=== PATIENT | female | born 1950 | race Caucasian/White ===

== ENCOUNTER 2018-04-05 11:38 | Emergency (ER) | payer MEDICARE, OTHER ==
[~2018-04-05] VITALS: Ht 162.6 cm; Wt 54.4 kg
[~2018-04-05 11:38] MED LIST: ALBU90OI; ALEN70 PO; ALPR.5 PO; AMLO5 PO; FLUNOI; HYDACE5 PO; ISOMON30; METCAR500 PO; PROACE100 PO; RXPROACE PO; ZAFI20
[2018-04-05 12:17] LABS: BASOPHILS ABSOLUTE AUTO 0.09 K/mm3 (0.00-0.23); BASOPHILS PERCENT AUTO 2 % (0-2); EOSINOPHILS ABSOLUTE AUTO 0.35 K/mm3 (0.00-0.68); EOSINOPHILS PERCENT AUTO 8 % (0-6); Hematocrit 43.5 % (33.0-51.0); Hemoglobin 14.4 g/dL (11.5-16.0); IMMATURE GRAN ABSOLUTE AUTO 0.01 K/mm3 (0.00-0.10); IMMATURE GRAN PERCENT AUTO 0 % (0-1); LYMPHOCYTES ABSOLUTE AUTO 1.18 K/mm3 (0.84-5.20); LYMPHOCYTES PERCENT AUTO 27 % (21-46); MONOCYTES ABSOLUTE AUTO 0.54 K/mm3 (0.16-1.47); MONOCYTES PERCENT AUTO 12 % (4-13); Mean Corpuscular HGB 33.3 pg (26.0-34.0); Mean Corpuscular HGB Conc 33.1 g/dL (31.5-36.5); Mean Corpuscular Volume 101 fL (80-100); NEUTROPHILS ABSOLUTE AUTO 2.19 K/mm3 (1.96-9.15); NEUTROPHILS PERCENT AUTO 50 % (41-73); Platelet Count 352 K/mm3 (150-400); RDW Coefficient Variation 11.8 % (11.7-14.2); RDW Standard Deviation 44.2 fL (35.1-46.3); Red Blood Cell Count 4.33 M/mm3 (3.80-5.20); White Blood Cell Count 4.36 K/mm3 (4.00-11.30)
[2018-04-05 12:36] LABS: Alanine Aminotransfer (ALT/SGP 24 U/L (12-78); Albumin, Blood 3.7 g/dL (3.4-5.0); Albumin/Globulin Ratio 0.9 (0.8-1.8); Alk Phos 49 U/L (50-136); Anion Gap 5 mmol/L (6-16); Aspartate Aminotrans (AST/SGOT 22 U/L (12-37); Bilirubin, Total 0.5 mg/dL (0.1-1.0); Blood Urea Nitrogen 12 mg/dL (8-24); Bun/Creatinine Ratio 13.4 (12.0-20.0); CO2, Blood 27 mmol/L (21-32); Calcium, Blood 8.9 mg/dL (8.5-10.1); Chloride, Blood 106 mmol/L (98-108); Glomerular Filtration Rate >60 (60-); Glucose, Blood 87 mg/dL (70-99); Sodium, Blood 138 mmol/L (136-145); Total Protein, Blood 7.7 g/dL (6.4-8.2); Troponin I <0.015 ng/mL (0.000-0.040)
== END 2018-04-05 14:15 | disposition home or self-care (01) ==
LOC: ER 11:38
PROVIDERS: Physician Assistant
DX: I20.1 Angina pectoris with documented spasm (principal); M54.2 Cervicalgia; I10 Essential (primary) hypertension; Z87.891 Personal history of nicotine dependence
CPT/HCPCS: 36415; 71046; 80053; 84484; 85025; 93005; 93010; 99285-25

== ENCOUNTER → 2023-12-19 | Outpatient (CLI) | payer MEDICARE, OTHER ==
[2023-12-27 06:35] LABS: OVA AND PARASITE,FECAL INTERP Negative (Negative)
== END | disposition home or self-care (01) ==
LOC: LAB SHORT 13:15 → LAB 13:15 → LAB FUT 12-12 10:35 → EDSTATUS 12-12 10:35
PROVIDERS: Internal Medicine Gastroenterology
DX: R19.7 Diarrhea, unspecified (principal)
CPT/HCPCS: 87177; 87209

== ENCOUNTER → 2024-07-13 | Outpatient (CLI) | payer MEDICARE, OTHER ==
[2024-07-13 11:17] LABS: BASOPHILS ABSOLUTE AUTO 0.06 K/mm3 (0.00-0.23); BASOPHILS PERCENT AUTO 1 % (0-2); EOSINOPHILS ABSOLUTE AUTO 0.11 K/mm3 (0.00-0.68); EOSINOPHILS PERCENT AUTO 2 % (0-6); Hemoglobin 12.8 g/dL (11.5-16.0); IMMATURE GRAN ABSOLUTE AUTO 0.04 K/mm3 (0.00-0.10); IMMATURE GRAN PERCENT AUTO 1 % (0-1); LYMPHOCYTES PERCENT AUTO 16 % (21-46); MONOCYTES ABSOLUTE AUTO 1.16 K/mm3 (0.16-1.47); MONOCYTES PERCENT AUTO 20 % (4-13); Mean Corpuscular HGB 33.2 pg (26.0-34.0); Mean Corpuscular HGB Conc 33.7 g/dL (31.5-36.5); Mean Corpuscular Volume 98 fL (80-100); Mean Platelet Volume 8.5 fL (9.1-12.4); NEUTROPHILS ABSOLUTE AUTO 3.45 K/mm3 (1.96-9.15); NEUTROPHILS PERCENT AUTO 60 % (41-73); Platelet Count 393 K/mm3 (150-400); RDW Coefficient Variation 12.5 % (11.7-14.2); RDW Standard Deviation 44.9 fL (35.1-46.3); Red Blood Cell Count 3.86 M/mm3 (3.80-5.20); White Blood Cell Count 5.72 K/mm3 (4.00-11.30)
[2024-07-13 11:27] LABS: Albumin, Blood 3.4 g/dL (3.4-5.0); Albumin/Globulin Ratio 0.9 (0.8-1.8); Bilirubin, Total 0.2 mg/dL (0.1-1.0); Bun/Creatinine Ratio 11.1 (12.0-20.0); Calcium, Blood 8.8 mg/dL (8.5-10.1); Creatinine, Blood 1.08 mg/dL (0.40-1.00); Potassium, Blood 4.2 mmol/L (3.5-5.5); Total Protein, Blood 7.4 g/dL (6.4-8.2)
== END ==
LOC: LAB SHORT 11:12 → LAB 11:12
PROVIDERS: Physician Assistant
DX: R41.82 Altered mental status, unspecified (principal)
CPT/HCPCS: 80053; 85025

== ENCOUNTER 2025-03-31 11:35 | Inpatient (IN) | payer MEDICARE, OTHER ==
[~2025-03-31] VITALS: Ht 162.6 cm; Wt 54.6 kg
[2025-03-31] MEDS ORDERED: NS 1,000 ML IV SCH ×2 (11:45→15:15)
[2025-03-31] MEDS ORDERED: Ondansetron HCl 2 MG / ML 2ML Vial IV PRN (12:10)
[2025-03-31 12:18] LABS: Hematocrit 36.7 % (33.0-51.0); Hemoglobin 12.9 g/dL (11.5-16.0); Mean Corpuscular HGB Conc 35.1 g/dL (31.5-36.5); Mean Corpuscular Volume 96 fL (80-100); NRBC ABSOLUTE 0.00 K/mm3 (0.00-0.02); NRBC Auto 0.0 /100 WBC (0.0-0.2); Platelet Count 273 K/mm3 (150-400); RDW Coefficient Variation 12.4 % (11.7-14.2); RDW Standard Deviation 43.7 fL (35.1-46.3)
[2025-03-31 12:46] LABS: Alanine Aminotransfer (ALT/SGP 16.0 U/L (12-78); Albumin, Blood 2.7 g/dL (3.4-5.0); Albumin/Globulin Ratio 0.7 (0.8-1.8); Anion Gap 13.0 mmol/L (3-11); Aspartate Aminotrans (AST/SGOT 14.0 U/L (12-37); Bilirubin, Direct 0.1 mg/dL (0.0-0.3); Bilirubin, Indirect 0.4 mg/dL (0.1-0.7); Bilirubin, Total 0.5 mg/dL (0.1-1.0); Blood Urea Nitrogen 45.0 mg/dL (8-24); CO2, Blood 21.0 mmol/L (21-32); Calcium, Blood 7.3 mg/dL (8.5-10.1); Chloride, Blood 96.0 mmol/L (98-108); Creatinine, Blood 1.95 mg/dL (0.40-1.00); Globulin, Blood 3.7 g/dL (2.2-4.0); Glucose, Blood 143.0 mg/dL (70-99); Magnesium, Blood 2.5 mg/dL (1.6-2.4); Phosphorus, Blood 2.8 mg/dL (2.5-4.9); Potassium, Blood 3.7 mmol/L (3.5-5.5); Sodium, Blood 126.0 mmol/L (136-145); Total Protein, Blood 6.4 g/dL (6.4-8.2)
[2025-03-31 13:31] LABS: BAND PERCENT MAN 28 % (0-8); BASOPHILS ABSOLUTE MAN 0.00 K/mm3 (0.00-0.23); BASOPHILS PERCENT MAN 0 % (0-2); EOSINOPHILS ABSOLUTE MAN 0.00 K/mm3 (0.00-0.68); EOSINOPHILS PERCENT MAN 0 % (0-6); LYMPHOCYTES ABSOLUTE MAN 0.20 K/mm3 (0.84-5.20); LYMPHOCYTES PERCENT MAN 5 % (21-46); MONOCYTES ABSOLUTE MAN 1.01 K/mm3 (0.16-1.47); MONOCYTES PERCENT MAN 25 % (4-13); NEUTROPHILS ABSOLUTE MAN 2.83 K/mm3 (1.96-9.15); SEG NEUTROPHILS PERCENT MAN 42 % (41-73)
[2025-03-31] MEDS ORDERED: FLU VACC TS2025(65UP)/MF59C/PF 45 MCG/0.5 ML SYRINGE IM SCH (15:10)
[2025-03-31] MEDS ORDERED: MetroNIDAZOLE 500MG/NS 100 ml 100 ML IV SCH (16:00)
[2025-03-31] MEDS ORDERED: CefTRIAXone Sodium 1,000 MG in NS 100 ML IV SCH (16:00)
[2025-03-31] MEDS ORDERED: Nystatin 100,000 Unit/ML Susp 5 ML UDC MT SCH (17:00)
[2025-03-31 17:01] VITALS: BP 100/53
[2025-03-31] MEDS ORDERED: Robaxin750 MG PO (17:42)
[2025-03-31] MEDS ORDERED: PROLIA60 MG/1 ML (17:43)
[2025-03-31] MEDS ORDERED: EXEM25 PO (17:45)
[2025-03-31] MEDS ORDERED: DULO30 PO (17:47)
[2025-03-31] MEDS ORDERED: Oxybutynin Chlor5 M1 PO (17:54)
[2025-03-31 18:28] LABS: Campylobacter Sp Not Detected (NOT DETECT); E. Coli O157 Not Detected (NOT DETECT); Enteroaggregative E. coli-EAEC Not Detected (NOT DETECT); Enteropathogenic E. coli-EPEC Not Detected (NOT DETECT); Enterotoxigenic E. coli-ETEC Not Detected (NOT DETECT); Salmonella Sp Not Detected (NOT DETECT); Shiga Toxin-prod E. coli-STEC Not Detected (NOT DETECT); Shigella/Enteroin E. coli-EIEC Not Detected (NOT DETECT); Vibrio Sp Not Detected (NOT DETECT)
[2025-03-31] MEDS ORDERED: FentaNYL Citrate 50 MCG/ML 2 ML Injection IV PRN (18:35)
--- NOTE | 2025-03-31 19:18 | NUR ---
PT ADMIT FROM ER. STOOL SAMPLE PENDING. ALERT AND ORIENTED X4, CALLS APPROPRIATELY. SCD IN PLACE, PT EDUCATED TO CALL FOR SBA TO BATHROOM, PT VERBALIZES UNDERSTANDING. PT REPORTS 8-[address] SHANKS NOTIFIED. PER MD, ORDER FENTANYL 25 MG IV Q3P AND OXYCODONE 5 MG PO Q4P. PT STATES ALLERGY TO CODEINE IS UPSET STOMACH AND NO SEVERE REACTION. MEDICATED PER EMAR. IV FLUIDS STARTED ON ADMISSION
[2025-03-31 19:48] VITALS: BP 103/52
[2025-03-31] MEDS ORDERED: Lactobacil 2-S.Thermo-Bifido 1 1 Cap PO SCH (21:00)
[2025-04-01 01:02] VITALS: BP 112/58
[2025-04-01 04:18] VITALS: BP 92/52
[2025-04-01 05:49] LABS: Hematocrit 31.3 % (33.0-51.0); Hemoglobin 11.0 g/dL (11.5-16.0); Mean Corpuscular HGB Conc 35.1 g/dL (31.5-36.5); Mean Corpuscular Volume 98 fL (80-100); NRBC ABSOLUTE 0.00 K/mm3 (0.00-0.02); NRBC Auto 0.0 /100 WBC (0.0-0.2); Platelet Count 216 K/mm3 (150-400); RDW Coefficient Variation 12.5 % (11.7-14.2); RDW Standard Deviation 44.9 fL (35.1-46.3)
[2025-04-01 06:13] LABS: Alanine Aminotransfer (ALT/SGP 15.0 U/L (12-78); Albumin, Blood 2.0 g/dL (3.4-5.0); Albumin/Globulin Ratio 0.6 (0.8-1.8); Anion Gap 12.0 mmol/L (3-11); Aspartate Aminotrans (AST/SGOT 21.0 U/L (12-37); Bilirubin, Total 0.4 mg/dL (0.1-1.0); Blood Urea Nitrogen 42.0 mg/dL (8-24); CO2, Blood 19.0 mmol/L (21-32); Calcium, Blood 6.4 mg/dL (8.5-10.1); Chloride, Blood 100.0 mmol/L (98-108); Creatinine, Blood 1.64 mg/dL (0.40-1.00); Globulin, Blood 3.5 g/dL (2.2-4.0); Glucose, Blood 147.0 mg/dL (70-99); Potassium, Blood 3.0 mmol/L (3.5-5.5); Sodium, Blood 128.0 mmol/L (136-145); Total Protein, Blood 5.5 g/dL (6.4-8.2)
[2025-04-01 06:22] LABS: BAND PERCENT MAN 23 % (0-8); BASOPHILS ABSOLUTE MAN 0.00 K/mm3 (0.00-0.23); BASOPHILS PERCENT MAN 0 % (0-2); EOSINOPHILS ABSOLUTE MAN 0.00 K/mm3 (0.00-0.68); EOSINOPHILS PERCENT MAN 0 % (0-6); LYMPHOCYTES ABSOLUTE MAN 0.07 K/mm3 (0.84-5.20); LYMPHOCYTES PERCENT MAN 1 % (21-46); METAMYELOCYTE ABSOLUTE MAN 0.14 K/mm3 (0.00-0.00); METAMYELOCYTE PERCENT MAN 2 % (0-0); MONOCYTES ABSOLUTE MAN 1.17 K/mm3 (0.16-1.47); MONOCYTES PERCENT MAN 16 % (4-13); NEUTROPHILS ABSOLUTE MAN 5.94 K/mm3 (1.96-9.15); SEG NEUTROPHILS PERCENT MAN 58 % (41-73)
[2025-04-01 07:46] VITALS: BP 105/70
[2025-04-01] MEDS ORDERED: Enoxaparin 30 MG/0.3 ML SYR SC SCH (09:00)
[2025-04-01] MEDS ORDERED: Multivitamins 1 Tab PO SCH (09:25)
[2025-04-01 11:48] VITALS: BP 111/60
[2025-04-01 15:26] VITALS: BP 114/61
--- NOTE | 2025-04-01 20:18 | NUR ---
SHIFT SUMMARY: NO NEW OR ACUTE CHANGES THIS SHIFT. PATIENT HAS BEEN A+O X4 AND HAS ABLE TO MAKE NEEDS KNOWN DURING THIS DAY. PATIENT SWITCHED TO PO ABX. TOLERATING CLEARS WELL WITH NO NAUSEA OR VOMITTING. WILL REPORT TO ONCOMING RN.
[2025-04-01 20:34] VITALS: BP 116/61
[2025-04-01] MEDS ORDERED: Banana Flakes/Tos 1 EA Powder Pack PO SCH (21:00)
[2025-04-02 00:45] VITALS: BP 112/59
[2025-04-02 05:00] VITALS: BP 120/69
[2025-04-02 07:00] LABS: Hematocrit 32.4 % (33.0-51.0); Hemoglobin 11.4 g/dL (11.5-16.0); Mean Corpuscular HGB Conc 35.2 g/dL (31.5-36.5); Mean Corpuscular Volume 97 fL (80-100); NRBC ABSOLUTE 0.00 K/mm3 (0.00-0.02); NRBC Auto 0.0 /100 WBC (0.0-0.2); Platelet Count 222 K/mm3 (150-400); RDW Coefficient Variation 12.9 % (11.7-14.2); RDW Standard Deviation 46.0 fL (35.1-46.3)
[2025-04-02 07:12] LABS: Alanine Aminotransfer (ALT/SGP 15.0 U/L (12-78); Albumin, Blood 2.0 g/dL (3.4-5.0); Albumin/Globulin Ratio 0.6 (0.8-1.8); Anion Gap 7.0 mmol/L (3-11); Aspartate Aminotrans (AST/SGOT 14.0 U/L (12-37); Bilirubin, Total 0.3 mg/dL (0.1-1.0); Blood Urea Nitrogen 21.0 mg/dL (8-24); CO2, Blood 22.0 mmol/L (21-32); Calcium, Blood 7.0 mg/dL (8.5-10.1); Chloride, Blood 106.0 mmol/L (98-108); Creatinine, Blood 0.83 mg/dL (0.40-1.00); Globulin, Blood 3.6 g/dL (2.2-4.0); Glucose, Blood 156.0 mg/dL (70-99); Potassium, Blood 3.4 mmol/L (3.5-5.5); Sodium, Blood 132.0 mmol/L (136-145); Total Protein, Blood 5.6 g/dL (6.4-8.2)
[2025-04-02 07:37] LABS: BAND PERCENT MAN 4 % (0-8); BASOPHILS ABSOLUTE MAN 0.00 K/mm3 (0.00-0.23); BASOPHILS PERCENT MAN 0 % (0-2); EOSINOPHILS ABSOLUTE MAN 0.00 K/mm3 (0.00-0.68); EOSINOPHILS PERCENT MAN 0 % (0-6); LYMPHOCYTES ABSOLUTE MAN 0.20 K/mm3 (0.84-5.20); LYMPHOCYTES PERCENT MAN 2 % (21-46); MONOCYTES ABSOLUTE MAN 1.67 K/mm3 (0.16-1.47); MONOCYTES PERCENT MAN 16 % (4-13); NEUTROPHILS ABSOLUTE MAN 8.60 K/mm3 (1.96-9.15); SEG NEUTROPHILS PERCENT MAN 78 % (41-73)
[2025-04-02 07:47] VITALS: BP 117/71
--- NOTE | 2025-04-02 08:08 | NUR ---
SHIFT SUMMARY PATIENT SLEPT INTERMITTENTLY DUE NAUSEA, VOMITTING, OR DIAHRRHEA. GAVE PATIENTS MED PER EMAR FOR PAIN. WAS ABLE TO GET UP INDEPENDENTLY AND MOVE WITH LITTLE CONCERN ALTHOUGH DID STATE DIZZINESS. ABLE TO MAKE NEEDS KNOWN, CALL LIGHT WITHIN REACH, NO DISTRESS NOTED. BED AT LOWEST LEVEL.
[2025-04-02] MEDS ORDERED: Enoxaparin 40 MG/0.4 ML SYR SC SCH (09:00)
[2025-04-02] MEDS ORDERED: Prochlorperazine Edisylate 10 mg Vial IV PRN (13:55)
[2025-04-02 16:13] VITALS: BP 124/69
--- NOTE | 2025-04-02 17:52 | NUR ---
END OF SHIFT PT ALERT, ORIENTED, ABLE TO MAKE NEED KNOWN. PT WORRIED ABOUT HER SON AND HAS ANXIETY RELATED TO THIS. SHE COMPLAINS OF NAUSEA THROUGOUT THE DAY. PRN GIVEN. PT SEEMS CONFUSED. SHE WILL ASK FOR NAUSEA MEDS, SHE WILL GET THEM, THEN WHEN I ASKE HER IF SHE HAS BEEN NAUSEATED SHE DENIES IT, WHEN ASKED IF SHE HAS BEEN VOMITING OR DRY HEAVES, SHE SAYS NO. BUT THEN QUICKLY ASKS ME WHAT I PUT IN HER IV, THEN TELLS ME SHE DIDNT KNOW SHE NEEDED NAUSEA MEDS, THEN WILL TELL ME THAT SHE HAS OCCASIONALLY BEEN DRY HEAVING. I WILL THEN GO FOLLOW UP WITH HER AN HOUR OR SO LATER, AND SHE WILL RANDOMLY ASK ME WHEN THE MEDICATION WILL START WORKING. I ASK HER IF SHE IS SICK TO HER STOMACH, SHE SAYS NO, THEN I TELL HER THAT MEANS THE MEDICATION IS WORKING. SHE HAS DONE THINGS LIKE THIS THROUGOUT THE ENTIRE DAY. SHE APPEARS TO BE ALERT AND ORIENTED, BUT SOMETHING ELSE BEYOND FORGETFUL APPEARS TO BE GOING ON. SHE CLEARLY IS FORGETFUL, BECAUSE SHE WILL WATCH ME GIVE HER MEDS, TELL HER WHAT THEY ARE AND WHAT THEY ARE FOR, AND THEN SHE ASKS ME WHAT IT WAS SHE JUST TOOK. AT THE END OF SHIFT, SHE HAD A SHOWER, WHICH SHE LOST IV ACCESS DUE TO INFILTRATION. NEW IV PLACED. PT TO FINISH HER IV POTASSIUM REPLACEMENT. PLAN IS TO ERIK DISCHARGE HOME TOMORROW. SHE CONTINUES WITH FREQUENT LOOSE STOOLS. COMMODE EMPTIED 3 TIMES, UNSURE OF HOW MANY TIMES SHE GOT UP TO USE IT, SHE IS NOT ABLE TO RECALL AN APPROXIMATE AMOUNT.
[2025-04-02 19:47] VITALS: BP 117/67
[2025-04-03 01:06] VITALS: BP 111/78
[2025-04-03 05:51] LABS: Hematocrit 33.9 % (33.0-51.0); Hemoglobin 11.9 g/dL (11.5-16.0); Mean Corpuscular HGB Conc 35.1 g/dL (31.5-36.5); Mean Corpuscular Volume 97 fL (80-100); NRBC ABSOLUTE 0.00 K/mm3 (0.00-0.02); NRBC Auto 0.0 /100 WBC (0.0-0.2); Platelet Count 242 K/mm3 (150-400); RDW Coefficient Variation 13.1 % (11.7-14.2); RDW Standard Deviation 46.5 fL (35.1-46.3)
[2025-04-03 06:12] LABS: Anion Gap 8.0 mmol/L (3-11); Blood Urea Nitrogen 12.0 mg/dL (8-24); CO2, Blood 22.0 mmol/L (21-32); Calcium, Blood 6.9 mg/dL (8.5-10.1); Chloride, Blood 108.0 mmol/L (98-108); Creatinine, Blood 0.71 mg/dL (0.40-1.00); Glucose, Blood 116.0 mg/dL (70-99); Potassium, Blood 4.2 mmol/L (3.5-5.5); Sodium, Blood 134.0 mmol/L (136-145)
[2025-04-03 06:14] VITALS: BP 146/77
[2025-04-03 06:19] LABS: BAND PERCENT MAN 8 % (0-8); BASOPHILS ABSOLUTE MAN 0.00 K/mm3 (0.00-0.23); BASOPHILS PERCENT MAN 0 % (0-2); EOSINOPHILS ABSOLUTE MAN 0.00 K/mm3 (0.00-0.68); EOSINOPHILS PERCENT MAN 0 % (0-6); LYMPHOCYTES ABSOLUTE MAN 0.26 K/mm3 (0.84-5.20); LYMPHOCYTES PERCENT MAN 3 % (21-46); MONOCYTES ABSOLUTE MAN 0.88 K/mm3 (0.16-1.47); MONOCYTES PERCENT MAN 10 % (4-13); NEUTROPHILS ABSOLUTE MAN 7.68 K/mm3 (1.96-9.15); SEG NEUTROPHILS PERCENT MAN 79 % (41-73)
[2025-04-03 07:45] VITALS: BP 137/77
--- NOTE | 2025-04-03 08:52 | NUR ---
SHIFT SUMMARY PATIENT WAS INDEPENDENT T/O MY SHIFT. SHE WAS ABLE TO MAKE NEEDS KNOWN, WAS FORGETFUL HOWEVER. LET DAY SHIFT KNOW ABOUT RIDE HOME CONCERN. PATIENT EDUCATED SEVERAL TIMES ABOUT CONDITION AND MEDS. PATIENT HAD INCONTINENT EPISODES. SHE IS ABLE TO MAKE NEEDS KNOWN, CALLS APPROPRIATELY, NO VOMITING DURING MY SHIFT. CALL LIGHT WITHIN REACH.
[2025-04-03] MEDS ORDERED: ACET325 PO (15:04)
[2025-04-03] MEDS ORDERED: BANATROL PLUS1 EAC1 PO (15:04)
[2025-04-03] MEDS ORDERED: Calcium Carbon500 MG PO (15:05)
[2025-04-03] MEDS ORDERED: MULVITA PO (15:06)
[2025-04-03] MEDS ORDERED: Diflucan100 MG PO (15:07)
[2025-04-03] MEDS ORDERED: VANCOCIN HCL125 MG PO (15:07)
[2025-04-03] MEDS ORDERED: PROM25 PO (15:08)
--- NOTE | 2025-04-03 15:35 | NUR ---
SHIFT/DISCHARGE SUMMARY: PATIENT A/OX4, CALM, PLEASANT AND COOPERATIVE c CARE, INDEPENDENT IN ROOM. PATIENT DENIES CP/PRESSURE, SOB, N/V AND DIZZINESS. PATIENT HAS HAD NO EVENTS ON TELE, SR HR IN THE 90'S BPM. PATIENT STILL HAS LIQUID TO SOFT CONSISTENCY BM AND REPORTS ONE BM THIS SHIFT. PATIENT RECEIVED SCHEDULED MEDS PER EMAR. VITAL SIGNS REVIEWED. PIV DC'D. PATIENT DISCHARGE HOME. DISCHARGE INSTRUCTIONS PACKET GIVEN TO PATIENT. PATIENT EDUCATED ON ADMITTIONG DX'S OF CDIFF COLITIS, S/S TX, NEW RX AND TO F/U c PCP. PATIENT VERBALIZED UNDERSTANDING c NO FURTHER QUESTIONS. RX WAS FAXED TO PATIENT P[facility]. ALL PERSONAL BELONGINGS WERE SENT c PATIENT. PATIENT LEFT THE ROOM AT 1536, TRANSPORTED VIA W/C BY ARVIND PENDLETON TO PATIENT ENTRANCE, [facility], AWAITING FOR PATIENT.
== END 2025-04-03 15:34 | disposition home or self-care (01) | DRG 872 ==
LOC: ER 11:35 → MEDS 15:06
PROVIDERS: Student in an Organized Health Care Education/Training Program; ADMIT Internal Medicine
DX: A41.4 Sepsis due to anaerobes (principal); A04.72 Enterocolitis due to Clostridium difficile, not specified as recurrent; N17.9 Acute kidney failure, unspecified; E87.1 Hypo-osmolality and hyponatremia; B37.0 Candidal stomatitis; R65.20 Severe sepsis without septic shock; G89.29 Other chronic pain; M54.9 Dorsalgia, unspecified; R13.10 Dysphagia, unspecified; E86.0 Dehydration; I10 Essential (primary) hypertension; E88.09 Other disorders of plasma-protein metabolism, not elsewhere classified; R73.9 Hyperglycemia, unspecified; Z88.5 Allergy status to narcotic agent; Z79.83 Long term (current) use of bisphosphonates; Z87.891 Personal history of nicotine dependence; Z98.1 Arthrodesis status; Z85.3 Personal history of malignant neoplasm of breast; Z92.21 Personal history of antineoplastic chemotherapy; Z92.3 Personal history of irradiation
CPT/HCPCS: 36415; 74177; 80048; 80053; 80076; 83605; 83735; 84100; 85025; 87040; 87324; 87507; 93005; 93010; 96361; 96374; 99285-25; A9270; J0696; J0780; J1650; J2405; J3010; J3480; J7030; J7050; Q9967